=== PATIENT | female | born 1990 | race African-American/Black ===

== ENCOUNTER 2019-09-12 12:15 | Emergency (ER) | payer SELFPAY ==
--- NOTE | 2019-09-12 13:31 | ER Document Report ---
HPI - HPI Patient complains to provider of: Umbilical tenderness Time Seen by Provider: 09/12/19 13:00 Onset/Duration: Gradual, Worse Quality of pain: Achy Pain Level: 4 Context: Presents with complaints of seen that she has had for several months that has been infected for the past month. Patient states area became more tender over the past 2 to 3 days. No fever. Patient also states that she used a different type of condom recently and feels as though her vaginal pH is off. Patient reports an odor but denies any vaginal discharge. Patient denies any concerns about STI. Associated Symptoms: denies: Fever, Nausea, Vomiting Relieved by: Denies Similar symptoms previously: No Recently seen / treated by doctor: No - ROS ROS below otherwise negative: Yes Systems Reviewed and Negative: Yes All other systems reviewed and negative - CONSTITUTIONAL Constitutional: DENIES: Fever, Chills - GASTROINTESTINAL Gastrointestinal: REPORTS: Abdominal Pain. DENIES: Nausea, Patient vomiting - DERM Skin Color: Erythema Notes: Infection around umbilical piercing Past Medical History - General Information source: Patient - Social History Smoking Status: Current Every Day Smoker Frequency of alcohol use: None Drug Abuse: None Lives with: Family Family History: Reviewed & Not Pertinent - Medical History Medical History: Negative Past Surgical History: Reports: Other - Plastic surgery Vertical Provider Document - CONSTITUTIONAL Agree With Documented VS: Yes Exam Limitations: No Limitations General Appearance: WD/WN, No Apparent Distress - HEENT HEENT: Atraumatic, Normocephalic - NECK Neck: Normal Inspection - RESPIRATORY Respiratory: Breath Sounds Normal, No Respiratory Distress - CARDIOVASCULAR Cardiovascular: Regular Rate, Regular Rhythm - GI/ABDOMEN Gastrointestinal: Abdomen Soft, Abdomen Tender - Umbilical tenderness with mild erythema and piercing in place - REPRODUCTIVE Notes: Patient deferred - BACK Back: Normal Inspection - MUSCULOSKELETAL/EXTREMETIES Musculoskeletal/Extremeties: MAEW - NEURO Level of Consciousness: Awake, Alert, Appropriate Motor/Sensory: No Motor Deficit - DERM Integumentary: Warm, Dry, Abscess - Umbilical abscess Course - Re-evaluation Re-evalutation: 09/12/19 13:32 After patient removed her umbilical piercing abscess started to drain spontaneously, patient reported immediate relief. Wound culture was obtained. - Vital Signs Vital signs: Temp Pulse Resp BP Pulse Ox 98.5 F 86 16 112/59 L 98 09/12/19 12:19 09/12/19 12:19 09/12/19 12:19 09/12/19 12:19 09/12/19 12:19 - Laboratory Laboratory results interpreted by me: 09/12/19 15:09 Labs- All tests 24 hr 09/12/19 14:05 Epi Cells (Wet Prep) 3+ EPITHELIALS SEEN Trichomonas (Wet Prep) TNP Vaginal WBC RARE WBCS SEEN Vaginal Yeast NO YEAST SEEN Discharge - Discharge Clinical Impression: Bacterial vaginosis, Abscess, umbilical Condition: Stable Disposition: HOME, SELF-CARE Instructions: Abscess ([facility]), Metronidazole ([facility]), Trimethoprim-Sulfa ([facility]), Vaginosis, Bacterial ([facility]) Additional Instructions: Return immediately for any new or worsening symptoms Followup with your primary care provider, call tomorrow to make a followup appointment Culture is pending, we will call if you need any different treatment Prescriptions: Sulfamethoxazole/Trimethoprim [Bactrim Ds Tablet] 1 each PO BID #20 tablet Mupirocin [Bactroban 2% Ointment 22 gm] 1 applic TP TID #22 gm Metronidazole [Metrogel 0.75% Vaginal Gel] 1 applic PV BID #1 tube Referrals: [facility] [Provider Group] - Follow up as needed
[2019-09-12 14:41] LABS: EPITHELIALS (WET MOUNT) 3+ EPITHELIALS SEEN; WBCS (WET MOUNT) RARE WBCS SEEN; YEAST (WET MOUNT) NO YEAST SEEN
[2019-09-12 15:22] VITALS: BP 113/59
[2019-09-12 16:17] LABS: CHLAM PCR NOT DETECTED (NOT DETECT)
== END 2019-09-12 15:27 | disposition home or self-care (01) ==
LOC: ER 12:15
DX: L02.216 Cutaneous abscess of umbilicus (principal); N76.0 Acute vaginitis; B96.89 Other specified bacterial agents as the cause of diseases classified elsewhere
CPT/HCPCS: 87070; 87077; 87205; 87210; 87491; 87591; 99283

== ENCOUNTER 2020-02-18 07:36 | Emergency (ER) | payer SELFPAY ==
[2020-02-18 08:29] LABS: ABSOLUTE BASOPHILS # (AUTO) 0.1 10^3/uL (0.0-0.2); ABSOLUTE EOSINOPHILS # (AUTO) 0.2 10^3/uL (0.0-0.6); ABSOLUTE LYMPHOCYTES (AUTO) 1.9 10^3/uL (0.5-4.7); ABSOLUTE MONOCYTES (AUTO) 0.5 10^3/uL (0.1-1.4); ABSOLUTE NEUT (AUTO) 5.7 10^3/uL (1.7-8.2); BASOPHILS % (AUTO) 1.2 % (0-2); EOSINOPHILS % (AUTO) 2.1 % (0-6); HEMATOCRIT 36.9 % (36.0-47.0); HEMOGLOBIN 12.2 g/dL (12.0-15.5); MEAN CORPUSCULAR HEMOGLOBIN 24.5 pg (27.0-33.4); MEAN CORPUSCULAR HGB CONC 33.1 g/dL (32.0-36.0); MEAN CORPUSCULAR VOLUME 74 fl (80-97); MONOCYTES % (AUTO) 5.5 % (3-13); PLATELET COUNT 212 10^3/uL (150-450); RED BLOOD COUNT 4.98 10^6/uL (3.72-5.28); RED CELL DISTRIBUTION WIDTH 16.3 % (11.5-14.0); SEGMENTED NEUTROPHILS % (AUTO) 68.2 % (42-78); TOTAL CELLS COUNTED % (AUTO) 100 %; WHITE BLOOD COUNT 8.4 10^3/uL (4.0-10.5)
[2020-02-18] MEDS ORDERED: ACETAMINOPHEN 325 MG TABLET PO ONE (08:30)
[2020-02-18 08:31] LABS: APPEARANCE,URINE CLOUDY; BILIRUBIN,URINE NEGATIVE (NEGATIVE); COLOR,URINE YELLOW; GLUCOSE, URINE NEGATIVE (NEGATIVE); KETONES,URINE NEGATIVE (NEGATIVE); LEUKOCYTE ESTERASE,URINE SMALL (NEGATIVE); NITRITE,URINE NEGATIVE (NEGATIVE); PROTEIN,URINE NEGATIVE (NEGATIVE); URINE SPECIFIC GRAVITY 1.025; UROBILINOGEN,URINE NEGATIVE mg/dL (<2.0)
--- NOTE | 2020-02-18 08:39 | ER Document Report ---
ED GI/ - General Chief Complaint: Abdominal Pain Stated Complaint: ABDOMINAL PAIN Time Seen by Provider: 02/18/20 08:18 Primary Care Provider: FLORENTIN,NIMO [Primary Care Provider] - Follow up as needed Mode of Arrival: Ambulatory Information source: Patient Notes: 29-year-old female patient presents to ED for evaluation of possible miscarriage. Patient reports bilateral lower pelvic pain for the last 2 days. Patient is . Notes history of prior ectopic with right tube removal in 2016 and multiple miscarriages in the past. Reports that she is roughly 8.5 weeks given LMP of 12/18/2019. Patient does not currently see an TEXTILE MACHINERY SALES REPRESENTATIVE in this area as she is from [place], [place]. Patient denies vaginal discharge, lesions, sores, burning with urination, chest pain, shortness of breath, back pain, rash, fever, chills, diarrhea, nausea, or vomiting. Denies cough or cold symptoms or recent travel. - Related Data Allergies/Adverse Reactions: amoxicillin Allergy (Verified 02/18/20 07:58) clindamycin Allergy (Verified 02/18/20 07:58) nitrofurantoin [From Macrobid] Allergy (Verified 02/18/20 07:58) Past Medical History - Social History Smoking Status: Current Every Day Smoker Family History: Reviewed & Not Pertinent Other: Patient has history of multiple miscarriages in the past as well as tubal with right tube removal in 2015. Renal/ Medical History: Reports: Hx Ectopic Past Surgical History: Reports: Hx Gynecologic Surgery - right tube removed, Other - Plastic surgery Review of Systems - Review of Systems Notes: Constitutional: Negative for fever. HENT: Negative for sore throat. Eyes: Negative for visual changes. Cardiovascular: Negative for chest pain. Respiratory: Negative for shortness of breath. Gastrointestinal: Negative for abdominal pain, vomiting or diarrhea. Genitourinary: Negative for dysuria, hematuria, urgency, frequency, or vaginal bleeding. Musculoskeletal: Negative for back pain. Skin: Negative for rash. Neurological: Negative for headaches, weakness or numbness. 10 point ROS negative except as marked above and in HPI. Physical Exam - Vital signs Vitals: Temp Pulse Resp BP Pulse Ox 97.8 F 69 16 114/41 L 99 02/18/20 07:40 02/18/20 07:40 02/18/20 07:40 02/18/20 07:40 02/18/20 07:40 Physical Exam: General: No acute distress. Alert and oriented x3. Sitting comfortably in a stretcher. Skin: No jaundice, pallor, petechiae, or rashes. Warm and dry. Neck: Supple with no lymphadenopathy. Full range of motion. Heart: Regular rate and rhythm. S1,S2. No murmurs, rubs, or gallops. Lungs: Clear to auscultation bilaterally. No wheezes, rhonchi, rales. Equal chest expansion. No retractions. Abdomen: Soft, tender to palpation in bilateral lower abdomen, worse in suprapubic region, nondistended. Positive bowel sounds in all 4 quadrants. No masses. No CVA tenderness bilaterally. Back: No midline spinal TTP. No paraspinous muscular TTP. Neuro: GCS 15. Moving all extremities without discomfort. Psych: Mood and affect appropriate. Course - Re-evaluation Re-evalutation: 02/18/20 08:39 29-year-old female presents to ED for evaluation of possible miscarriage. Patient reports abdominal pain. Patient was evaluated with CBC, CMP, UA, serum , HCG, and type and screen. CBC unremarkable for anemia. CMP without electrolyte abnormalities. Urine is positive for infection. testing [place] [address]. Reports that she has never needed RhoGam in the past. Attempts were made to obtain a type and screen however at this time, unable to obtain the blood work needed. She declines further blood work at this time. She has not needed Rhogam in the past. Patient further evaluated with ultrasound imaging shows IUP 7 weeks and 6 days. This is consistent with her LMP. Patient advised of these findings. Patient most likely experiencing pain secondary to and UTI verses ectopic or possible miscarriage. Patient advised to have a repeat HCG as well as repeat ultrasound preformed in the next 48-72 hours. Patient started Keflex which she has tolerated in the past. Instructed to follow up with primary care / [employer]ERY SALES REPRESENTATIVE. Patient is provided referrals to TEXTILE MACHINERY SALES REPRESENTATIVE providers. Patient understands indications to return to the ER. Patient is agreeable with this plan. 02/18/20 12:43 - Vital Signs Vital signs: Temp Pulse Resp BP Pulse Ox 97.9 F 59 L 16 96/42 L 100 02/18/20 11:35 02/18/20 11:35 02/18/20 11:35 02/18/20 11:35 02/18/20 11:35 - Laboratory Result Diagrams: 02/18/20 08:14 02/18/20 08:14 Laboratory results interpreted by me: 02/18/20 02/18/20 02/18/20 08:14 08:14 08:14 MCV 74 L MCH 24.5 L RDW 16.3 H Sodium 136.2 L Beta HCG, Quant Urine Blood SMALL H Ur Leukocyte Esterase SMALL H Urine HCG, Qual POSITIVE H 02/18/20 08:14 MCV MCH RDW Sodium Beta HCG, Quant 65751.00 H Urine Blood Ur Leukocyte Esterase Urine HCG, Qual - Diagnostic Test Radiology reviewed: Image reviewed Discharge - Discharge Clinical Impression: Abdominal pain affecting UTI (urinary tract infection) during Qualifiers: Trimester: first trimester Qualified Code(s): O23.41 - Unspecified infection of urinary tract in , first trimester Condition: Stable Disposition: HOME, SELF-CARE Instructions: Abdominal Pain ([facility]), Cephalexin ([facility]), Urinary Tract Infection ([facility]) Additional Instructions: Please use no more than 3.5 g of tylenol throughout the day. Prescriptions: Cephalexin Monohydrate [Keflex 500 mg Capsule] 500 mg PO BID #14 capsule Referrals: LOCALMD,NO [Primary Care Provider] - Follow up as needed
[2020-02-18 08:43] LABS: ALBUMIN 4.1 g/dL (3.5-5.0); ALKALINE PHOSPHATASE 54 U/L (38-126); ANION GAP 8 (5-19); ASPARTATE AMINO TRANSFERASE 16 U/L (14-36); BILIRUBIN,TOTAL 0.2 mg/dL (0.2-1.3); BLOOD UREA NITROGEN 9 mg/dL (7-20); CALCIUM 9.4 mg/dL (8.4-10.2); CARBON DIOXIDE 22 mmol/L (22-30); CHLORIDE 106 mmol/L (98-107); GLUCOSE 94 mg/dL (75-110); POTASSIUM 3.8 mmol/L (3.6-5.0); TOTAL PROTEIN 7.3 g/dL (6.3-8.2)
--- NOTE | 2020-02-18 10:40 | RADIOLOGY REPORT (SQ) ---
EXAM DESCRIPTION: U/S [id number] TRNABD 1GES W/ODOP IMAGES COMPLETED DATE/TIME: 02/18/2020 10:22 am REASON FOR STUDY: R/O miscarriage H/O right tubal COMPARISON: None. TECHNIQUE: Transvaginal static and realtime grayscale images acquired of the pelvis. Additional shabana cted spectral and color Doppler images recorded. All images stored on PACs. [id number] CLINICAL DATES: 8 weeks 6 days LIMITATIONS: None. FINDINGS: FETUS: Single Living intrauterine . ULTRASOUND EGA: 7 weeks 6 days ULTRASOUND ABDIFATAH: 09/30/2020 EFW: Not applicable less than 20 weeks. CRL: 1.5 cm FHR: 162 beats per minute. SURVEY: No visualized anomalies. AMNIOTIC FLUID: Adequate amount. PLACENTA: Not yet developed due to early gestation. SUBCHORIONIC BLEED: No. SIZE OF BLEED: Not applicable. UTERUS: No masses. No anomalies. RIGHT ADNEXA: Ovary not identified due to poor acoustical window. No adnexal free fluid. No adnexal masses. LEFT ADNEXA: Normal ovary with normal vascular flow. No adnexal free fluid. No adnexal masses. FREE FLUID: None. OTHER: No other significant finding. IMPRESSION: LIVING INTRAUTERINE . EGA 7 weeks 6 day Trimester of : First trimester - 0 to 13 weeks. TECHNICAL DOCUMENTATION: JOB ID: [id number] [employer]- All Rights Reserved rev Reading location - IP/workstation name: [email or web address]
[2020-02-18 11:35] VITALS: BP 96/42
== END 2020-02-18 11:35 | disposition home or self-care (01) ==
LOC: ER 07:36
DX: O23.41 Unspecified infection of urinary tract in pregnancy, first trimester (principal); O26.891 Other specified pregnancy related conditions, first trimester; R10.2 Pelvic and perineal pain; O99.331 Smoking (tobacco) complicating pregnancy, first trimester; F17.200 Nicotine dependence, unspecified, uncomplicated; Z87.59 Personal history of other complications of pregnancy, childbirth and the puerperium; Z90.79 Acquired absence of other genital organ(s); Z88.0 Allergy status to penicillin; Z88.1 Allergy status to other antibiotic agents; Z3A.08 8 weeks gestation of pregnancy
CPT/HCPCS: 36415; 76801; 80053; 81001; 81025; 83690; 84702; 85025; 99284